=== PATIENT | female | born 1980 | race Caucasian/White ===

== ENCOUNTER 2020-06-05 10:45 | Outpatient (REF) | payer OTHER, SELFPAY | END 2020-06-05 10:46 | disposition home or self-care (01) | LOC: HO.LAB 10:45 | PROVIDERS: Visit Provider Internal Medicine | DX: Z20.828 Contact with and (suspected) exposure to other viral communicable diseases (principal) | CPT/HCPCS: 36415; C9803; U0003 ==

== ENCOUNTER 2020-06-22 16:44 | Outpatient (REF) | payer OTHER, SELFPAY | END 2020-06-22 16:45 | disposition home or self-care (01) | LOC: HO.LAB 16:44 | PROVIDERS: Visit Provider Internal Medicine | DX: Z20.822 Contact with and (suspected) exposure to COVID-19 (principal) | CPT/HCPCS: 36415; C9803; U0003 ==

== ENCOUNTER 2024-01-21 15:40 | Outpatient (REF) | payer OTHER, SELFPAY | END 2024-01-21 15:41 | disposition home or self-care (01) | LOC: HO.SH 15:40 | PROVIDERS: Visit Provider Nurse Practitioner Family | DX: Z01.118 Encounter for examination of ears and hearing with other abnormal findings (principal); H93.293 Other abnormal auditory perceptions, bilateral | CPT/HCPCS: 92552; 92556 ==